=== PATIENT | male | born 1990 | race Hispanic/Latino ===

== ENCOUNTER 2022-05-02 10:33 | Emergency (ER) | payer SELFPAY ==
[~2022-05-02] VITALS: Ht 149.9 cm; Wt 82.0 kg
[2022-05-02] MEDS ORDERED: PAXLOVID PO (12:01)
[2022-05-02 12:09] VITALS: BP 153/93
== END 2022-05-02 12:18 | disposition home or self-care (01) | DRG 179 ==
LOC: ED 10:33
DX: U07.1 COVID-19 (principal); M79.10 Myalgia, unspecified site

== ENCOUNTER 2022-05-10 23:45 | Emergency (ER) | payer SELFPAY ==
[~2022-05-10] VITALS: Ht 149.9 cm; Wt 82.7 kg
[~2022-05-10 23:45] MED LIST: PAXLOVID PO
[2022-05-11 00:25] LABS: HEMATOCRIT 43.3 % (39.0-50.0); IMMATURE GRANULOCYTES 0.4 % (0.0-5.0); MEAN CELL VOLUME 83.3 fL CALC (80.0-100.0); MEAN CORPUSCULAR HGB 28.8 pG CALC (26.0-32.0); MEAN CORPUSCULAR HGB CONC 34.6 g/dL CAL (32.0-36.0); NEUT# 5.02 thou/uL (1.82-7.42); RED BLOOD COUNT 5.2 mill/uL (4.70-6.10)
[2022-05-11 00:30] VITALS: BP 138/91
[2022-05-11 00:41] LABS: ALBUMIN 4.5 g/dL (3.2-5.0); ALKALINE PHOSPHATASE 94 u/l (38-126); ANION GAP 11 (6-22 (CALC)); BILIRUBIN, TOTAL 0.6 mg/dL (0.0-1.4); BUN 7 mg/dL (9-20); BUN/CREATININE RATIO 12 (12-20 (CALC)); CARBON DIOXIDE 27 mmol/l (22-30); CHLORIDE 102 mmol/l (95-108); CREATININE 0.6 mg/dL (0.7-1.3); GFR FOR AFR.AMER. > 60 ML/MIN (>=60 (CALC)); GFR OTHER RACES > 60 ML/MIN (>=60 (CALC)); LIPASE 62 u/l (23-300); POTASSIUM 3.6 mmol/l (3.5-5.1); SGOT/AST 59 u/l (17-59); SODIUM 137 mmol/l (137-146); TOTAL PROTEIN 7.7 g/dL (6.3-8.2)
[2022-05-11 00:45] LABS: ACT PARTIAL THROMBO TIME 23.4 SECONDS (20.0-32.5); INTERNATIONAL NORMALIZED RATIO 0.9 RATIO (0.7-1.3); PROTHROMBIN TIME 9.9 SECONDS (9.0-12.5)
[2022-05-11 00:58] LABS: MYOGLOBIN 18 ng/mL (0 - 121)
[2022-05-11 01:00] VITALS: BP 149/94
[2022-05-11 01:30] VITALS: BP 148/98
[2022-05-11 01:36] LABS: URINE BILIRUBIN - DIPSTICK NEGATIVE (NEGATIVE); URINE BLOOD DIPSTICK NEGATIVE (NEGATIVE); URINE COLOR YELLOW; URINE GLUCOSE - DIPSTICK NEGATIVE (NEGATIVE); URINE KETONE NEGATIVE (NEGATIVE); URINE LEUK ESTERASE NEGATIVE (NEGATIVE); URINE PH 6.5 (4.5-8.0); URINE PROTEIN - DIPSTICK NEGATIVE (NEG-TRACE); URINE SPECIFIC GRAVITY <=1.005; URINE UROBILINOGEN - DIPSTICK 0.2 E.U./dL (0.2)
[2022-05-11 01:37] LABS: URINE NITRITE - DIPSTICK NEGATIVE (Negative)
[2022-05-11 02:00] VITALS: BP 134/91
[2022-05-11] MEDS ORDERED: TORADOL PO (02:18)
[2022-05-11 02:30] VITALS: BP 140/93
[2022-05-11 02:45] VITALS: BP 140/93
== END 2022-05-11 03:01 | disposition home or self-care (01) | DRG 313 ==
LOC: ED 23:45
PROVIDERS: Family Medicine
DX: R07.89 Other chest pain (principal)